=== PATIENT | female | born 1945 | race Caucasian/White ===

== ENCOUNTER 2020-11-18 22:46 | Emergency (ER) | payer MEDICARE, MEDICAID ==
[~2020-11-18] VITALS: Ht 144.8 cm; Wt 49.1 kg
[~2020-11-18 22:46] MED LIST: HYDR-3973 PO; LEVO100T9 PO; LEVO750T46 PO; OMEP40CA21 PO
[2020-11-18 22:54] VITALS: BP 132/75
[2020-11-18] MEDS ORDERED: METH-797 PO (23:01)
== END 2020-11-18 23:21 | disposition home or self-care (01) ==
LOC: ER 22:47
DX: S29.012A Strain of muscle and tendon of back wall of thorax, initial encounter (principal); M25.512 Pain in left shoulder; G58.8 Other specified mononeuropathies; K21.9 Gastro-esophageal reflux disease without esophagitis; G89.29 Other chronic pain; Z88.2 Allergy status to sulfonamides; Z88.8 Allergy status to other drugs, medicaments and biological substances; Z79.2 Long term (current) use of antibiotics; Z79.899 Other long term (current) drug therapy; X58.XXXA Exposure to other specified factors, initial encounter; Y93.89 Activity, other specified; Y92.89 Other specified places as the place of occurrence of the external cause; Y99.8 Other external cause status
CPT/HCPCS: 99283

== ENCOUNTER 2020-12-23 16:34 | Emergency (ER) | payer MEDICARE, MEDICAID ==
[~2020-12-23] VITALS: Ht 144.8 cm; Wt 49.1 kg
[~2020-12-23 16:34] MED LIST changes: +METH-797 PO
[2020-12-23] MEDS ORDERED: HYDROcodone/acetaminophen 10/325mg tab PO ONE (16:40)
[2020-12-23 21:33] VITALS: BP 119/65
== END 2020-12-23 21:36 | disposition home or self-care (01) ==
LOC: ER 16:35
DX: S80.01XA Contusion of right knee, initial encounter (principal); S83.91XA Sprain of unspecified site of right knee, initial encounter; M25.561 Pain in right knee; M25.462 Effusion, left knee; K21.9 Gastro-esophageal reflux disease without esophagitis; G89.29 Other chronic pain; Z88.2 Allergy status to sulfonamides; Z88.8 Allergy status to other drugs, medicaments and biological substances; Z79.2 Long term (current) use of antibiotics; Z79.899 Other long term (current) drug therapy; W18.30XA Fall on same level, unspecified, initial encounter; Y93.89 Activity, other specified; Y92.89 Other specified places as the place of occurrence of the external cause; Y99.8 Other external cause status
CPT/HCPCS: 73564; 99283